=== PATIENT | female | born 1965 | race Caucasian/White ===

== ENCOUNTER 2017-05-23 09:51 | Emergency (ER) | payer BC ==
[2017-05-23] MEDS ORDERED: METHYLPREDNISOLONE 80MG/VIAL IM ONE (10:13)
--- NOTE | 2017-05-23 10:17 | Emergency Department Record ---
History of Present Illness - General Chief complaint: Rash Stated complaint: RASH BOTH FOREARMS/CHEST AND LEGS Time Seen by Provider: 05/23/17 10:11 Source: Patient Mode of Arrival: Ambulatory Limitations: No limitations - History of Present Illness Initial comments: 51 yo female presents with an itchy rash to both forearms. She has taken Prednisone from her PCP. She took 5 days of the prescript. No fevers. No streaking redness. No NVD. No shortness of breath. She has had some spread to the legs and chest as well. MD complaint: Rash Onset/Timin -: Week(s) Location: [facility] Severity: Moderate Improves with: Topical medication Worsens with: None Context: Other Associated symptoms: Itching Treatments Prior to Arrival: Corticosteroid, OTC topical medication, Other Treatment Prior to Arrival Comment:: Triamcinolone 0.5% cream - Related Data Home Medications Medication Instructions Recorded Confirmed Last Taken Doxycycline Monohydrate [Oracea] 40 mg PO DAILY 09/15/15 05/23/17 05/22/17 Estrogen,Con/M-Progest Acet 1 tab PO DAILY 09/15/15 09/15/15 05/22/17 [Prempro 0.625-2.5 mg Tablet] Ibuprofen [Ibuprofen] 800 mg PO Q8H 09/15/15 05/23/17 Unknown Loratadine/Pseudoephedrine 1 tab PO DAILY 09/15/15 05/23/17 05/23/17 [Claritin-D 24 Hour Tablet] Zolpidem Tartrate [Ambien] 10 mg PO QHS 05/23/17 05/23/17 05/22/17 Previous Rx's Medication Instructions Recorded Prednisone [Prednisone 20Mg] 20 mg PO BID #10 tab 05/23/17 Allergies Allergy/AdvReac Type Severity Reaction Status Date / Time Sulfa (Sulfonamide Allergy Unknown HIVES Verified 05/23/17 09:58 Antibiotics) [SULFA (SULFONAMIDE ANTIBIOTICS)] Travel Screening - Travel/Exposure Within Last 30 Days Have you traveled within the last 30 days?: No - Travel/Exposure Within Last Year Have you traveled outside the [place] in the last year?: No - Additonal Travel Details Have you been exposed to anyone with a communicable illness?: No - Travel Symptoms Symptom Screening: None Review of Systems Constitutional: Denies: Chills, Fever, Malaise, Weakness Eyes: Denies: Eye discharge ENT: Denies: Congestion, Throat pain Respiratory: Denies: Cough Cardiovascular: Denies: Chest pain, Syncope Endocrine: Denies: Fatigue Gastrointestinal: Denies: Abdominal pain, Diarrhea, Nausea, Vomiting Genitourinary: Denies: Dysuria, Urgency Musculoskeletal: Denies: Arthralgia, Back pain, Myalgia Skin: Reports: As per HPI, Change in color, Pruritus, Rash. Denies: Bruising Neurological: Denies: Confusion Psychiatric: Denies: Anxiety, Suicidal thoughts Hematological/Lymphatic: Denies: Easy bleeding, Easy bruising, Swollen glands Past Medical History - SOCIAL HISTORY Smoking Status: Never smoker Alcohol Use: Rare Drug Use: None - RESPIRATORY Hx Respiratory Disorders: No - CARDIOVASCULAR Hx Cardio Disorders: No - NEURO Hx Neuro Disorders: No - GI Hx GI Disorders: No - Hx Genitourinary Disorders: No - ENDOCRINE Hx Endocrine Disorders: No - MUSCULOSKELETAL Hx Musculoskeletal Disorders: Yes - PSYCH Hx Psych Problems: No - HEMATOLOGY/ONCOLOGY Hx Hematology/Oncology Disorders: No Family Medical History Any Significant Family History?: Yes Family Hx Comment (NOT TO BE USED IN PLACE OF ITEMS BELOW): mom: Lupus, fibro Hx Cancer: Mother, Grandparents Physical Exam - General General Appearance: Alert, Oriented x3, Cooperative, No acute distress Limitations: No limitations - Head Head exam: Atraumatic, Normal inspection - Eye Eye exam: Normal appearance, PERRL. negative: Conjunctival injection, Periorbital swelling - ENT ENT exam: Normal exam Ear exam: Normal external inspection Nasal Exam: Normal inspection Mouth exam: Normal external inspection Throat exam: Normal inspection - Neck Neck exam: Normal inspection, Full ROM. negative: Tenderness - Respiratory Respiratory exam: Normal lung sounds bilaterally. negative: Respiratory distress - Cardiovascular Cardiovascular Exam: Regular rate, Normal rhythm, Normal heart sounds - GI/Abdominal GI/Abdominal exam: Soft. negative: Tenderness - Rectal Rectal exam: Deferred - exam: Deferred - Extremities Extremities exam: Full ROM, Other (rash). negative: Normal inspection, Pedal edema, Tenderness - Back Back exam: Reports: Normal inspection, Full ROM. Denies: Muscle spasm, Rash noted, Tenderness - Neurological Neurological exam: Alert, Normal gait, Oriented X3, Reflexes normal - Psychiatric Psychiatric exam: Normal affect, Normal mood - Skin Skin exam: Erythema Distribution of rash: Chest, RUE, LUE, RLE, LLE Description of rash: Confluent, Erythematous Course Vital Signs 05/23/17 10:03 Temperature 97.4 F L Pulse Rate 75 Respiratory 20 Rate Blood Pressure 133/75 Pulse Ox 98 - Reevaluation(s) Reevaluation #1: The rash is consistent with contact dermatitis Vitals reviewed 05/23/17 10:13 Disposition Disposition: Discharge Clinical Impression: Contact dermatitis Qualifiers: Contact dermatitis type: irritant Contact dermatitis trigger: non-food plants Qualified Code(s): L24.7 - Irritant contact dermatitis due to plants, except food Disposition: Home, Self-Care Condition: (1) Good Instructions: Contact Dermatitis (ED) Additional Instructions: Return if worse, draining, fever or any new concerns You may add Benadryl as needed for itching as well Prescriptions: Prednisone [Prednisone 20Mg] 20 mg PO BID #10 tab Forms: Patient Portal Access Time of Disposition: 10:18
== END 2017-05-23 10:28 | disposition home or self-care (01) ==
LOC: ER 09:51
DX: L24.7 Irritant contact dermatitis due to plants, except food (principal)
CPT/HCPCS: 96372; 99283; J1040

== ENCOUNTER 2017-05-29 12:24 | Emergency (ER) | payer BC ==
[2017-05-29] MEDS ORDERED: METHYLPREDNISOLONE PF 125MG/VIAL IM ONE (13:13)
--- NOTE | 2017-05-29 13:19 | Emergency Department Record ---
History of Present Illness - General Chief complaint: Rash Stated complaint: POISON LIZETTE Time Seen by Provider: 05/29/17 13:04 Source: Patient Mode of Arrival: Ambulatory Limitations: No limitations - History of Present Illness Initial comments: 51 yo female presents to ED with a CC of recurring itching, erythematous rash to the chest, abdomen, and RLE. Patient reports that she has been treated for contact dermatitis intermittently for the past 1 month. Patient denies fevers, chills, or recent illness. Patient denies health problems at her baseline. MD complaint: Rash Onset/Timin -: Month(s) Location: Generalized Severity: Moderate Severity scale (1-10): 5 Quality: Other (itching) Consistency: Constant Improves with: None Worsens with: None Associated symptoms: Denies other symptoms Treatments Prior to Arrival: OTC topical medication - Related Data Home Medications Medication Instructions Recorded Confirmed Last Taken Doxycycline Monohydrate [Oracea] 40 mg PO DAILY 09/15/15 05/29/17 1 Day Ago ~05/28/17 Estrogen,Con/M-Progest Acet 1 tab PO DAILY 09/15/15 05/29/17 1 Day Ago [Prempro 0.625-2.5 mg Tablet] ~05/28/17 Ibuprofen [Ibuprofen] 800 mg PO Q8H 09/15/15 05/29/17 1 Day Ago ~05/28/17 Loratadine/Pseudoephedrine 1 tab PO DAILY 09/15/15 05/29/17 1 Day Ago [Claritin-D 24 Hour Tablet] ~05/28/17 Zolpidem Tartrate [Ambien] 10 mg PO QHS 05/23/17 05/29/17 1 Day Ago ~05/28/17 Previous Rx's Medication Instructions Recorded Hydroxyzine Pamoate [Vistaril] 50 mg PO Q8H PRN #20 capsule 05/29/17 Prednisone [Prednisone 20Mg] 20 mg PO TID #18 tab 05/29/17 Allergies Allergy/AdvReac Type Severity Reaction Status Date / Time Sulfa (Sulfonamide Allergy Unknown HIVES Verified 05/29/17 12:51 Antibiotics) [SULFA (SULFONAMIDE ANTIBIOTICS)] Travel Screening - Travel/Exposure Within Last 30 Days Have you traveled within the last 30 days?: No - Travel/Exposure Within Last Year Have you traveled outside the [place] in the last year?: No - Additonal Travel Details Have you been exposed to anyone with a communicable illness?: No - Travel Symptoms Symptom Screening: None Review of Systems Constitutional: Denies: Chills, Fever, Malaise, Night sweats Eyes: Denies: Eye discharge, Eye pain ENT: Denies: Congestion, Ear pain, Epistaxis Respiratory: Denies: Cough, Dyspnea Cardiovascular: Denies: Chest pain, Dyspnea on exertion Endocrine: Denies: Fatigue, Heat or cold intolerance Gastrointestinal: Denies: Abdominal pain, Nausea, Vomiting Genitourinary: Denies: Frequency, Incontinence, Retention Musculoskeletal: Denies: Arthralgia, Back pain, Gout, Joint swelling Skin: Reports: Rash. Denies: Bruising, Change in color Neurological: Denies: Abnormal gait, Confusion, Headache, Seizure Psychiatric: Denies: Anxiety Hematological/Lymphatic: Denies: Anemia, Blood Clots Past Medical History - SOCIAL HISTORY Smoking Status: Never smoker Alcohol Use: None Drug Use: None - RESPIRATORY Hx Respiratory Disorders: No - CARDIOVASCULAR Hx Cardio Disorders: No - NEURO Hx Neuro Disorders: No - GI Hx GI Disorders: No - Hx Genitourinary Disorders: No - ENDOCRINE Hx Endocrine Disorders: No - MUSCULOSKELETAL Hx Musculoskeletal Disorders: Yes - PSYCH Hx Psych Problems: No - HEMATOLOGY/ONCOLOGY Hx Hematology/Oncology Disorders: No Family Medical History Any Significant Family History?: Yes Family Hx Comment (NOT TO BE USED IN PLACE OF ITEMS BELOW): mom: Lupus, fibro Hx Cancer: Mother, Grandparents Physical Exam - General General Appearance: Alert, Oriented x3, Cooperative, No acute distress Limitations: No limitations - Head Head exam: Atraumatic, Normocephalic, Normal inspection Head exam detail: negative: Abrasion, Contusion, Keller's sign, General tenderness, Hematoma, Laceration - Eye Eye exam: Normal appearance. negative: Conjunctival injection, Periorbital swelling, Periorbital tenderness, Scleral icterus - ENT Ear exam: negative: Auricular hematoma, Auricular trauma Nasal Exam: negative: Active bleeding, Discharge, Dried blood, Foreign body Mouth exam: negative: Drooling, Laceration, Muffled voice, Tongue elevation - Neck Neck exam: Normal inspection. negative: Meningismus, Tenderness - Respiratory Respiratory exam: Normal lung sounds bilaterally. negative: Rales, Respiratory distress, Rhonchi, Stridor - Cardiovascular Cardiovascular Exam: Regular rate, Normal rhythm, Normal heart sounds - GI/Abdominal GI/Abdominal exam: Soft. negative: Rebound, Rigid, Tenderness - Rectal Rectal exam: Deferred - exam: Deferred - Extremities Extremities exam: Tenderness (Erythematous rash to the chest and LLE). negative : Calf tenderness, Pedal edema - Back Back exam: Denies: CVA tenderness (R), CVA tenderness (L) - Neurological Neurological exam: Alert, Oriented X3 - Psychiatric Psychiatric exam: Normal affect, Normal mood - Skin Skin exam: Erythema Type of lesion: Rash Distribution of rash: Chest, LLE Course Vital Signs 05/29/17 12:46 Temperature 98.1 F Pulse Rate 81 Respiratory 18 Rate Blood Pressure 155/81 Pulse Ox 97 - Reevaluation(s) Reevaluation #1: 05/29/17 13:17 Patient reports improvement with Solumedrol previously, will re-administer solumedrol and prednisone as well as Vistaril for her itching symptoms. Patiernt appears stable for discharge at this time. Disposition Disposition: Discharge Clinical Impression: Contact dermatitis Qualifiers: Contact dermatitis type: irritant Contact dermatitis trigger: non-food plants Qualified Code(s): L24.7 - Irritant contact dermatitis due to plants, except food Disposition: Home, Self-Care Condition: (2) Stable Instructions: Contact Dermatitis (ED) Additional Instructions: Return to ED if if your symptoms worsen or if you have any concerns. Prednisone and Vistaril as directed. Follow-up with your family doctor in 5-7 days as directed. Prescriptions: Hydroxyzine Pamoate [Vistaril] 50 mg PO Q8H PRN #20 capsule PRN Reason: Itch/Hives Prednisone [Prednisone 20Mg] 20 mg PO TID #18 tab Forms: Patient Portal Access Time of Disposition: 13:21
== END 2017-05-29 13:40 | disposition home or self-care (01) ==
LOC: ER 12:24
DX: L24.7 Irritant contact dermatitis due to plants, except food (principal)
CPT/HCPCS: 96372; 99283; J2930

== ENCOUNTER 2019-10-16 23:10 | Emergency (ER) | payer BC ==
[2019-10-16] MEDS ORDERED: KETOROLAC 30 MG/ML VIAL IVP ONE (23:27)
[2019-10-16] MEDS ORDERED: ONDANSETRON HCL IV 4 MG/2 ML VIAL IVP ONE (23:27)
[2019-10-16] MEDS ORDERED: 0.9 % SODIUM CHLORIDE 1000ML 1,000 ML IV SCH (23:30)
--- NOTE | 2019-10-16 23:31 | Emergency Department Record ---
History of Present Illness - General Chief Complaint: Abdominal Pain Stated Complaint: LLQ PAIN Time Seen by Provider: 10/16/19 23:24 Source: Patient Mode of Arrival: Ambulatory Limitations: No limitations - History of Present Illness Initial Comments: 54 yo female presents to ED for evaluation of "sharp, stabbing" pain to the left lower abdomen that began approximately 15 minutes prior to arrival. Patient denies a history of her symptoms previously, denies fevers, chills, or vomiting symptoms. Patient denies urinary symptoms on examination. Patient denies history of previous abdominal surgery, and denies health problems at her baseline. MD Complaint: Abdominal pain Onset/Timin -: Minutes(s) Location: LLQ Radiation: None Migration to: No migration Severity scale (1-10): 7 Quality: Sharp Consistency: Constant Improves With: Nothing Worsens With: Nothing Associated Symptoms: Denies other symptoms - Related Data Patient : No Previous Rx's Medication Instructions Recorded Ibuprofen [Motrin] 800 mg PO Q6H PRN #30 tab 10/17/19 Tamsulosin HCl [Flomax] 0.4 mg PO DAILY #15 cap.er.24h 10/17/19 Allergies Allergy/AdvReac Type Severity Reaction Status Date / Time Sulfa (Sulfonamide Allergy Unknown HIVES Verified 10/16/19 23:21 Antibiotics) [SULFA (SULFONAMIDE ANTIBIOTICS)] Travel Screening - Travel/Exposure Within Last 30 Days Have you traveled within the last 30 days?: No - Travel/Exposure Within Last Year Have you traveled outside the [place] in the last year?: No - Additonal Travel Details Have you been exposed to anyone with a communicable illness?: No - Travel Symptoms Symptom Screening: None Review of Systems Constitutional: Denies: Chills, Fever, Malaise, Night sweats Eyes: Denies: Eye discharge, Eye pain ENT: Denies: Congestion, Ear pain, Epistaxis Respiratory: Denies: Cough, Dyspnea Cardiovascular: Denies: Chest pain, Dyspnea on exertion Endocrine: Denies: Fatigue, Heat or cold intolerance Gastrointestinal: Reports: Abdominal pain. Denies: Constipation, Nausea, Vomiting Genitourinary: Denies: Incontinence, Retention Musculoskeletal: Denies: Arthralgia, Back pain Skin: Denies: Bruising, Change in color Neurological: Denies: Abnormal gait, Confusion, Headache, Seizure Psychiatric: Denies: Anxiety Hematological/Lymphatic: Denies: Anemia, Blood Clots Past Medical History - SOCIAL HISTORY Smoking Status: Never smoker Alcohol Use: None Drug Use: None - RESPIRATORY Hx Respiratory Disorders: No - CARDIOVASCULAR Hx Cardio Disorders: No - NEURO Hx Neuro Disorders: No - GI Hx GI Disorders: No - Hx Genitourinary Disorders: Yes Hx UTI: Yes - ENDOCRINE Hx Endocrine Disorders: No - MUSCULOSKELETAL Hx Musculoskeletal Disorders: Yes - PSYCH Hx Psych Problems: No - HEMATOLOGY/ONCOLOGY Hx Hematology/Oncology Disorders: No Family Medical History Any Significant Family History?: Yes Family Hx Comment (NOT TO BE USED IN PLACE OF ITEMS BELOW): mom: Lupus, fibro Hx Cancer: Mother, Grandparents Physical Exam - General General Appearance: Alert, Oriented x3, Cooperative, Mild distress Limitations: No limitations - Head Head exam: Atraumatic, Normocephalic, Normal inspection Head exam detail: negative: Abrasion, Contusion, Keller's sign, General tenderness, Hematoma, Laceration - Eye Eye exam: Normal appearance. negative: Conjunctival injection, Periorbital swelling, Periorbital tenderness, Scleral icterus - ENT Ear exam: negative: Auricular hematoma, Auricular trauma Nasal Exam: negative: Active bleeding, Discharge, Dried blood, Foreign body Mouth exam: negative: Drooling, Laceration, Muffled voice, Tongue elevation - Neck Neck exam: Normal inspection. negative: Meningismus, Tenderness - Respiratory Respiratory exam: Normal lung sounds bilaterally. negative: Rales, Respiratory distress, Rhonchi, Stridor - Cardiovascular Cardiovascular Exam: Regular rate, Normal rhythm, Normal heart sounds - GI/Abdominal GI/Abdominal exam: Soft, Tenderness (Mild TTP LLQ, no rebound or guarding symptoms are present on examination.). negative: Rebound, Rigid - Rectal Rectal exam: Deferred - exam: Deferred - Extremities Extremities exam: Normal inspection. negative: Pedal edema, Tenderness - Back Back exam: Denies: CVA tenderness (R), CVA tenderness (L) - Neurological Neurological exam: Alert, Normal gait, Oriented X3 - Psychiatric Psychiatric exam: Normal affect, Normal mood - Skin Skin exam: Normal color. negative: Abrasion Type of lesion: negative: abrasion Course Vital Signs 10/16/19 23:15 Temperature 98.3 F Pulse Rate [ 76 Left] Respiratory 16 Rate Blood Pressure 149/84 [Left] Pulse Ox 100 - Reevaluation(s) Reevaluation #1: 10/16/19 23:58 Laboratory studies were reviewed and appear grossly unremarkable for an acute process. Patient is going for CT imaging at this time. Reevaluation #2: 10/17/19 00:22 CT Abdomen and Pelvis: Left sided proximal obstructing ureteral calculi with mild hydronephrosis Bilateral non-obstructing renal calculi Uterine fibroid Patient was updated on all results, reports that she is feeling much better. Patient was updated on all results, and appears stable for discharge at this time. Medical Decision Making - Lab Data Result diagrams: 10/16/19 23:30 10/16/19 23:30 Disposition Disposition: Discharge Clinical Impression: Kidney stone on left side Disposition: Home, Self-Care Condition: (2) Stable Instructions: Kidney Stones (ED) Additional Instructions: Return to ED if your symptoms worsen or if you have any concerns. Flomax, Motrin 800 mg as directed. Follow-up with Dr. Irvin as scheduled on 10/24. Prescriptions: Tamsulosin HCl [Flomax] 0.4 mg PO DAILY #15 cap.er.24h Ibuprofen [Motrin] 800 mg PO Q6H PRN #30 tab PRN Reason: Pain - Mod To Severe (5-10) Referrals: Kareem Irvin M.D. [MEDICAL DOCTOR] - Forms: Patient Portal Access Time of Disposition: 00:24 Quality - Quality Measures Quality Measures: N/A - Blood Pressure Screening Does Patient Have Any of the Following: No Blood Pressure Classification: Pre-Hypertensive BP Reading Systolic Measurement: 149 Diastolic Measurement: 84 Screening for High Blood Pressure: < Pre-Hypertensive BP, F/U Documented > [G8950] Pre-Hypertensive Follow-up Interventions: Referral to alternative/primary care provider.
[2019-10-16 23:36] LABS: ABSOLUTE NEUTROPHIL COUNT 2.75; BASO % 0.7 % (0-6); EOS % 4.1 % (0-6); GRAN % 47.3 % (47-80); HEMATOCRIT 40.6 % (35.0-47.0); HEMOGLOBIN 13.4 gm/dl (11.6-16.0); LYMPH % 39.1 % (16-45); MEAN CELL VOLUME 84.9 fl (81-97); MEAN PLATELET VOLUME 9.4 fl (7.4-10.4); MONO % 8.8 % (0-9); PLATELET COUNT 153 K/uL (130-400); RED BLOOD COUNT 4.78 M/uL (3.80-5.40); RED CELL DISTRIBUTION WIDTH 13.8 % (11.5-14.5); WHITE BLOOD COUNT W/O DIFF 5.8 K/uL (4.2-12.2)
[2019-10-16 23:50] LABS: BLOOD UREA NITROGEN 19 mg/dL (6-20)
[2019-10-16 23:51] LABS: CREATININE 0.8 mg/dL (0.5-0.9); EST GLOMERULAR FILTRATION RATE > 60 mL/min; LIPASE 18 U/L (13-60); TOTAL PROTEIN 6.7 g/dL (6.6-8.7)
[2019-10-16 23:53] LABS: GLUCOSE,RANDOM 122 mg/dL (74-109)
[2019-10-16 23:56] LABS: ALBUMIN 4.5 g/dL (4.0-5.0); ALKALINE PHOSPHATASE 91 U/L (35-104); ALT/SGPT 26 U/L (<33); AST/SGOT 23 U/L (10.0-35.0)
[2019-10-17 00:20] LABS: URINE BILIRUBIN NEGATIVE (NEGATIVE); URINE BLOOD LARGE (NEGATIVE); URINE COLOR YELLOW; URINE GLUCOSE (UA) NEGATIVE (NEGATIVE); URINE KETONE NEGATIVE (NEGATIVE); URINE LEUKOCYTE ESTERASE NEGATIVE (NEGATIVE); URINE NITRITE NEGATIVE (NEGATIVE); URINE PROTEIN NEGATIVE (NEGATIVE); URINE UROBILINOGEN 0.2 E.U./dL (0.20 - 1.00)
--- NOTE | 2019-10-17 00:21 | CT SCAN REPORT ---
EXAMINATION: CT Abdomen and Pelvis with IV Contrast EXAM DATE: 10/17/2019 12:10 AM TECHNIQUE: CT imaging of the abdomen and pelvis was performed with intravenous contrast. Coronal and sagittal images were reconstructed. IV Contrast: The amount and type of contrast are recorded in the medical record. INDICATION: LLQ pain COMPARISON: None ENCOUNTER: Not applicable CT ABDOMEN AND PELVIS FINDINGS: Lung Bases: Included extent of the lung bases are clear. Hepatobiliary: The liver has a normal size with a smooth surface. The hepatic and portal veins appear patent. The gallbladder is absent. There is no biliary dilatation. Pancreas: The pancreas is normal. Spleen: The spleen is not enlarged. Adrenals: The adrenal glands are normal. Kidneys, Ureters, & Bladder: There is a 4 mm calculus in the left proximal ureter causing mild left-s ided hydronephrosis and nephrographic delay. There are additional bilateral nonobstructing small pipe l calculi. No right-sided hydronephrosis is noted. There are couple of scattered tiny renal cysts. Mateo th ureters have a normal course and the urinary bladder is unremarkable. Gastrointestinal: The stomach and small bowel are normal with no obstruction or inflammation. The irwin endix is normal. There is diverticular disease involving primarily the left colon including the sigm oid segment with no associated inflammation. The large bowel is otherwise unremarkable. Reproductive Organs: The lesion in the uterus probably a fibroid versus polyp. Lymphatic System: There is no adenopathy within the abdomen or pelvis. Vasculature: Normal caliber abdominal aorta with mild atherosclerotic disease. Peritoneum: No free fluid, free air, or inflammation Abdominal Wall & Musculoskeletal: No suspicious bone lesions. IMPRESSION: 1. Left proximal ureteral calculus causing mild left-sided obstructive uropathy. 2. Additional bilateral nonobstructing renal calculi. 3. Probable uterine fibroid follow-up. Please correlate clinically and follow-up as warranted. 4. Additional findings, as above. Dictated by: Nohemy Kapadia MD on 10/17/2019 12:10 AM. .
[2019-10-17 00:22] LABS: URINE APPEARANCE SL CLOUDY
[2019-10-17 00:29] LABS: URINE RBC 16 - 25 (NONE SEEN)
[2019-10-17 00:30] LABS: URINE BACTERIA 2+; URINE MUCUS LIGHT; URINE WBC 0 - 2 (0-2/hpf)
== END 2019-10-17 00:51 | disposition home or self-care (01) ==
LOC: ER 23:10
DX: N13.2 Hydronephrosis with renal and ureteral calculous obstruction (principal)
CPT/HCPCS: 74177; 80053; 81001; 83690; 85025; 96361; 96374; 96375; 99284; J1885; J2405; J7030